=== PATIENT | female | born 1970 | race Caucasian/White ===

== ENCOUNTER 2017-11-05 13:30 | Day surgery (SDC) | payer OTHER ==
[2017-10-31 11:59] VITALS: BMI 30.5
[2017-11-05] MEDS ORDERED: ACETAMINOPHEN 325 MG TABLET (FP) PO PRN (14:18)
[2017-11-05] MEDS ORDERED: IBUPROFEN 800 MG/8 ML IJ IVPB PRN (14:18)
--- NOTE | 2017-11-05 14:18 | HP ---
History & Physical Update - History History: No Change - Physical Physical: No Change - Assessment Assessment: No Change - Plan Plan: No Change (agree with H&P from 10/31/17 - for hysteroscopic myomectomy, suction D&C)
[2017-11-05] MEDS ORDERED: LACTATED RINGERS SOLUTION 1,000 ML IV SCH ×2 (14:30→15:45)
[2017-11-05] MEDS ORDERED: MIDAZOLAM HCL 2 MG/2 ML SINGLE DOSE VIAL ONE ×2 (14:36)
[2017-11-05] MEDS ORDERED: PROPOFOL 20 ML ONE (14:39)
[2017-11-05] MEDS ORDERED: SUCCINYLCHOLINE CHLORIDE 200 MG/10 ML VIAL ONE (14:40)
[2017-11-05] MEDS ORDERED: PROMETHAZINE HCL 25 MG/1 ML VIAL IVPB PRN (15:35)
[2017-11-05] MEDS ORDERED: oxyCODONE HCL 5 MG TABLET PO PRN (15:35)
[2017-11-05] MEDS ORDERED: ONDANSETRON 4 MG/2 ML VIAL IVPUSH PRN (15:35)
[2017-11-05 18:17] VITALS: BP 120/80; PULSE 87; TEMP 98.5
--- NOTE | 2017-11-05 20:30 | OP ---
Operative Note - Note: Operative Date: 11/05/17 Pre-Operative Diagnosis: submucosal leiomyoma, menorrhagia Operation: hysteroscopic myomectomy, suction d&c Findings: two small fundal uterine polyps Post-Operative Diagnosis: Same as Pre-op Surgeon: Genevieve Wyman Anesthesiologist/SENIOR ELECTRICAL ESTIMATOR: Jodi Sandhu MD Anesthesia: General Specimens Removed: uterine polyps, endometrial curettings Estimated Blood Loss (mls): 10 Operative Report Dictated: Yes
--- NOTE | 2017-11-07 14:24 | OP ---
DATE OF OPERATION: 11/05/2017 PREOPERATIVE DIAGNOSES: Submucosal leiomyoma and uterine polyps, menorrhagia. POSTOPERATIVE DIAGNOSES: Uterine polyps and menorrhagia. PROCEDURE: Hysteroscopic myomectomy, suction dilatation and curettage. SURGEON: Genevieve Wyman DO ANESTHESIA: General by Jodi Sandhu MD. SPECIMENS REMOVED: Uterine polyps. ESTIMATED BLOOD LOSS: 10 mL. COMPLICATIONS: None. COUNTS: Sponge, needle and instrument count correct. DISPOSITION: Stable to PACU. BRIEF HISTORY AND PROCEDURE: Patient is a 46-year-old female who had been seen in the office with complaints of heavy painful periods. Upon the saline-infusion sonogram was found to have intrauterine lesions thought to be polyps, possibly fibroids. The patient was consented in the office for a hysteroscopic myomectomy, suction D & C. The patient was admitted to [facility] on November 05, 2017. Consents which were signed in the office were reconfirmed on that morning. She was then taken back to the operating room, given general anesthesia by Dr. Sandhu and placed in the dorsal lithotomy position. Hard timeout was performed. A speculum was placed inside the vagina and the anterior lip of the cervix was grasped with single-tooth tenaculum and the cervix was dilated to accommodate the diagnostic hysteroscope which was advanced to the uterine fundus. Two small uterine polyps were noted at the fundus of the uterus. Next the cervix was continued to be dilated to accommodate the operative hysteroscope which was advanced to the uterine fundus. Bilateral tubal ostia were noted. The polyps were removed with several passes of the resectoscope device and then a suction D & C was performed. One final look with the hysteroscope revealed no evidence of uterine perforation and all instruments were removed from the vagina. Bleeding was noted to be minimal. Sponge and instrument counts were noted to be correct. The patient tolerated the procedure well, was recovering in stable condition in the PACU after the procedure. GENEVIEVE WYMAN DO /[id number]
--- NOTE | 2017-11-07 17:31 | PATH ---
Surgical Pathology Report Patient Name: SRINIVAS GOMEZ [facility]. Rec. #: [id number] /Age/Gender: 1970 (Age: 46) / F Account: [id number] Location: [facility] SUR[facility]ICAL Taken: 11/05/2017 Received: 11/06/2017 Reported: 11/07/2017 Physicians: Louis Estevez M.D. Specimen(s) Received INTRA-UTERINE CONTENTS Clinical History Vaginal bleeding, polyps Final Diagnosis INTRAUTERINE CONTENTS, BIOPSY: ENDOMETRIAL POLYP. SEPARATE SECRETORY TYPE ENDOMETRIUM. SMOOTH MUSCLE BUNDLE IDENTIFIED. SOME ADIPOSE TISSUE PRESENT, SEE NOTE. Note: This case was discussed with Dr. Wyman on November 07, 2017. Electronically Signed Tim Howe M.D. Gross Description Received in formalin labeled "intrauterine contents," is a 3.5 x 2.1 x 0.3 cm aggregate of zuñiga soft tissue fragments. The formalin is filtered and the specimen is entirely submitted in 2 cassettes. /11/06/2017 saudi/11/06/2017
== END 2017-11-05 18:00 | disposition home or self-care (01) ==
LOC: JASU-SURG 13:30
PROVIDERS: ATTEND Obstetrics & Gynecology
PROC: 0UB97ZX Excision of Uterus, Via Natural or Artificial Opening, Diagnostic (ICD-10-PCS; principal; 2017-11-05 14:00)
PROC: 0UDB7ZX Extraction of Endometrium, Via Natural or Artificial Opening, Diagnostic (ICD-10-PCS; 2017-11-05 14:00)
PROC: 0UJD8ZZ Inspection of Uterus and Cervix, Via Natural or Artificial Opening Endoscopic (ICD-10-PCS; 2017-11-05 14:00)
DX: N84.0 Polyp of corpus uteri (principal); N92.0 Excessive and frequent menstruation with regular cycle
CPT/HCPCS: 36415; 84703; 86850; 86900; 86901; 88305-TC; 94760